=== PATIENT | male | born 1950 | race Caucasian/White ===

== ENCOUNTER 2017-01-07 17:04 | Emergency (ER) | payer MEDICARE, OTHER ==
--- NOTE | 2017-01-07 18:06 | PHYS DOC ---
General Chief Complaint: FLANK PAIN Stated Complaint: FLANK PAIN Time Seen by MD: 17:52 Source: patient, family Problems: History of Present Illness Initial Comments Patient with for right flank pain. Patient says he had this intermittently last week. He thought it might of just been some musculoskeletal pain, and fairly went away by the end of the week. However, today at noontime recurred. It feels like a sharp and pulling pain in the right low flank area. There's been constant. He's had no fever or chills. There is no runny nose or sore throat. There is no chest pain or shortness of breath. No URI symptoms or cough. There is no change amount of bladder habits no blood in the urine. There is no focal extremity or neurologic place. He's had some chronic swelling of the lower extremity is but this is not acutely changed or different in any way. There is no history of injury or trauma to the back, is really not had back problems before. Patient's really done nothing at home for this. He notes it's worse when he tries to be up and moving around. He is more comfortable when he lays still. Patient's past history is remarkable for sleep apnea, hypertension, diabetes. He controls this with diet. He does not check his sugar at home. He is a nonsmoker and nonuser of ethanol. There is a family history of kidney stones in his mother. Allergies: Coded Allergies: No Known Drug Allergies (Unverified , 01/07/17) Past Medical History Medical History: diabetes, hypertension, other Social History Smoker: non-smoker Alcohol: none Review of Systems All Other Systems: Reviewed and Negative Physical Exam General Appearance: WD/WN, mild distress Neck: full range of motion, supple, normal inspection Respiratory: lungs clear, normal breath sounds, no respiratory distress Cardiovascular: regular rate, rhythm, no gallop Gastrointestinal: non tender, soft, no organomegaly Back: no CVA tenderness, no vertebral tenderness Extremities: non-tender, normal inspection, swelling Neurologic/Psychiatric: alert, normal mood/affect, oriented x 3 Skin: normal color Lymphatic: no adenopathy Comments Generally this is a grossly obese white male who appears to be in mild discomfort with right flank pain. Vitals are as noted. Pertinent findings on physical exam shows chest to be clear. Cardiac exam shows regular rate and rhythm without murmur. The abdomen is soft and nontender without mass or megaly. There is no peritoneal findings. There is no CVA tenderness, no vertebral tenderness, and really no paraspinal tenderness. He seems to have most of his tenderness over the right lateral posterior back area. There is no signs of trauma. Extremities show 1+ bilateral lower extremity edema without redness cord asymmetry or signs of DVT. There are no gross motor or sensory deficits patient within the lower extremities. He is awake alert oriented and cooperative. Remainder of physical exam is clinically unremarkable. Orders, Labs, Meds Old charts note no prior ER visits within the current system. Labs today are clinically unremarkable. There is no evidence of UTI or hematuria. Creatinine is minimally elevated at 1.6. CT scan of the abdomen and pelvis shows no acute changes per radiology. There is specifically no evidence of urinary stone. He does have a chronic Heidel hernia seen. There does appear to be some moderate stool throughout the colon per the emergency physician. 2005 Patient resting comfortably in emergency department. He reports excellent pain relief after Toradol. Discussed with the patient uncertain cause of his pain. This is most likely muscular skeletal in nature. It had some on recalled injury or trauma. Therefore show no evidence of any urinary pathology or intra- abdominal issues. I discussed with him home care including rest, ice, gentle stretching exercises to the back. We discussed the importance of weight loss for his back pain and overall health, he voices understanding and is agreeable to consider this. We'll give him prescription for Toradol and Norflex for home. He voices understanding need to follow up with primary care or return to the ER sooner as needed if worsening anyway. He looks well, no acute discomfort distress, okay for discharge home at this time. KENNA SCHROEDER MD Jan 07, 2017 18:06
[2017-01-07] MEDS ORDERED: ONDANSETRON PF 4 MG/2 ML VIAL. ONE (18:28)
[2017-01-07] MEDS ORDERED: KETOROLAC 30 MG/ML VIAL. ONE (18:28)
[2017-01-07] MEDS: ONDANSETRON PF 4 MG/2 ML VIAL. IV ONE (18:36)
[2017-01-07] MEDS: KETOROLAC 30 MG/ML VIAL. IV ONE (18:37)
--- NOTE | 2017-01-07 18:50 | RAD ---
PROCEDURE CT abdomen and pelvis without intravenous contrast. HISTORY Severe right flank pain beginning today. TECHNIQUE Helical CT of the abdomen and pelvis was performed without intravenous or oral contrast. Exposure: One or more of the following individualized dose reduction techniques were utilized for this examination: 1. Automated exposure control. 2. Adjustment of the mA and/or kV according to patient size. 3. Use of iterative reconstruction technique. COMPARISON CT abdomen pelvis December 22, 2014. FINDINGS Evaluation of solid organs is limited by lack of intravenous contrast. Evaluation of enteric structures may be limited by lack of oral contrast. Liver, spleen, pancreas, gallbladder, and bilateral adrenal glands are unremarkable. Right kidney and bilateral ureters are free of stone or obstruction. Left kidney demonstrates punctate nonobstructive nephrolith. Interpolar region of left kidney demonstrates 2.5 centimeter low-density lesion, not adequately characterized on this examination examination, but may be parapelvic cyst. Urinary bladder is unremarkable. No bowel obstruction or inflammation is identified. Appendix is without inflammation. Calcified aortic atherosclerosis is present. No free air or free fluid is seen in the abdomen or pelvis. Moderate retrocardiac hernia, primarily containing fat, is seen. IMPRESSION 1. No acute abnormality identified in the abdomen or pelvis. No evidence urinary stone. 2. Hiatal hernia. Electronically signed by: Jorge Smalls MD (Jan 07, 2017 18:48:34)
[2017-01-07 19:05] LABS: BASO # 0.1 x10^3/uL (0.0-0.2); BASO % 1 % (0-3); EOS # 0.3 x10^3/uL (0.0-0.7); EOS % 4 % (0-3); HEMATOCRIT 39.5 % (39.0-53.0); HEMOGLOBIN 12.9 g/dL (13.0-17.5); LYMPH # 2.8 x10^3/uL (1.0-4.8); LYMPH % 34 % (24-48); MEAN CORPUSCULAR HEMOGLOBIN 30 pg (25-35); MEAN CORPUSCULAR HGB CONC 33 g/dL (31-37); MEAN CORPUSCULAR VOLUME 92 fL (79-100); MONO # 0.6 x10^3/uL (0.0-1.1); MONO % 7 % (0-9); NEUT # 4.5 x10^3uL (1.8-7.7); NEUT % 55 % (31-73); PLATELET COUNT 217 x10^3/uL (140-400); RED BLOOD COUNT 4.28 x10^6/uL (4.30-5.70); RED CELL DISTRIBUTION WIDTH 13.4 % (11.5-14.5); WHITE BLOOD COUNT 8.3 x10^3/uL (4.0-11.0)
[2017-01-07 19:22] LABS: BILIRUBIN,URINE NEG (NEG); CLARITY,URINE CLEAR; COLOR,URINE YELLOW; GLUCOSE,URINE NEG (NEG); NITRITE,URINE NEG (NEG); UROBILINOGEN,URINE 0.2 mg/dL (0.2 mg/dL)
[2017-01-07 19:23] LABS: BACTERIA,URINE 0 /HPF (0-FEW); SQUAMOUS EPITHELIAL CELL,UR OCC /LPF; WBC,URINE OCC /HPF (0-4)
[2017-01-07 19:40] LABS: ALBUMIN 3.9 g/dL (3.4-5.0); ALBUMIN/GLOBULIN RATIO 0.9 (1.0-1.7); CALCIUM 8.8 mg/dL (8.5-10.1); CREATININE 1.6 mg/dL (0.7-1.3); GFR 43.6; POTASSIUM 4.4 mmol/L (3.5-5.1); TOTAL BILIRUBIN 0.3 mg/dL (0.2-1.0); TOTAL PROTEIN 8.4 g/dL (6.4-8.2)
[2017-01-07 20:30] VITALS: BP 141/78
== END 2017-01-07 20:30 | disposition home or self-care (01) ==
LOC: ER 17:04
DX: R10.9 Unspecified abdominal pain (principal); M54.89 Other dorsalgia; R60.0 Localized edema; K44.9 Diaphragmatic hernia without obstruction or gangrene; E11.9 Type 2 diabetes mellitus without complications; I10 Essential (primary) hypertension; G47.30 Sleep apnea, unspecified
CPT/HCPCS: 36415; 74176; 80053; 81001; 85027; 96374; 96375; 99285; J1885; J2405

== ENCOUNTER → 2018-05-21 | Outpatient (CLI) | payer MEDICARE, OTHER ==
[2018-05-21 08:33] LABS: HEMATOCRIT 37.7 % (39.0-53.0); HEMOGLOBIN 12.5 g/dL (13.0-17.5)
[2018-05-21 08:38] LABS: ALBUMIN 3.7 g/dL (3.4-5.0); CALCIUM 9.1 mg/dL (8.5-10.1); CREATININE 1.7 mg/dL (0.7-1.3); GFR 40.4; POTASSIUM 4.5 mmol/L (3.5-5.1); URIC ACID 4.9 mg/dL (3.5-7.2)
--- NOTE | 2018-05-21 10:57 | RAD ---
Examination: Ultrasound kidneys HISTORY: History of cyst in the kidney COMPARISON: None available FINDINGS: The right kidney measures 11.3 x 5.8 x 5.5 cm. The left kidney measures 10.5 x 5.6 x 5.3 cm. There is a cystic structure identified in the left kidney measuring 2.4 cm.No evidence of hydronephrosis. The urinary bladder is mildly distended. The postvoid urinary bladder volume is 14.5 mL. IMPRESSION: 2.4 cm cyst identified in the left kidney. Electronically signed by: Chai Dalal MD (05/21/2018 10:53 AM) [id number]
[2018-05-22 06:10] LABS: MICRO CREAT RATIO <4.2 mg/g creat (0.0-30.0); MICROALB RD UR <3.0 ug/mL (Not Estab.)
== END | disposition home or self-care (01) ==
LOC: US 07:39
PROVIDERS: ATTEND Internal Medicine Nephrology
DX: N28.1 Cyst of kidney, acquired (principal); N32.89 Other specified disorders of bladder; I10 Essential (primary) hypertension; E11.9 Type 2 diabetes mellitus without complications
CPT/HCPCS: 36415; 76770; 80069; 82043; 82570; 82607; 82728; 83540; 83550; 83735; 84156; 84550; 85014; 85018

== ENCOUNTER → 2018-09-01 | Outpatient (CLI) | payer MEDICARE, OTHER ==
[2018-09-01 17:23] LABS: BASO # 0.1 x10^3/uL (0.0-0.2); BASO % 1 % (0-3); EOS # 0.3 x10^3/uL (0.0-0.7); EOS % 4 % (0-3); HEMATOCRIT 37.3 % (39.0-53.0); HEMOGLOBIN 12.5 g/dL (13.0-17.5); LYMPH # 2.6 x10^3/uL (1.0-4.8); LYMPH % 32 % (24-48); MEAN CORPUSCULAR HEMOGLOBIN 31 pg (25-35); MEAN CORPUSCULAR HGB CONC 33 g/dL (31-37); MEAN CORPUSCULAR VOLUME 94 fL (79-100); MONO # 0.5 x10^3/uL (0.0-1.1); MONO % 7 % (0-9); NEUT # 4.5 x10^3uL (1.8-7.7); NEUT % 57 % (31-73); PLATELET COUNT 240 x10^3/uL (140-400); RED BLOOD COUNT 3.97 x10^6/uL (4.30-5.70); RED CELL DISTRIBUTION WIDTH 14.7 % (11.5-14.5)
[2018-09-01 17:48] LABS: CALCIUM 8.9 mg/dL (8.5-10.1); CREATININE 1.5 mg/dL (0.7-1.3); GFR 46.7
--- NOTE | 2018-09-01 18:07 | RAD ---
Ultrasound venous Doppler INDICATION:LEFT LEG SWELLING TECHNIQUE: Grayscale, color Doppler and spectral waveform ultrasound images of the left lower extremity deep veins obtained. COMPARISON: None FINDINGS: The interrogated deep veins are compressible and demonstrate evidence of blood flow with normal respiratory variation and response to augmentation. IMPRESSION: No sonographic evidence of acute DVT of the left lower extremity deep veins. Electronically signed by: Sha Vazquez DO (09/01/2018 6:04 PM) [facility]
== END | disposition home or self-care (01) ==
LOC: US 16:50
PROVIDERS: ATTEND Family Medicine
DX: R60.0 Localized edema (principal)
CPT/HCPCS: 36415; 80048; 83880; 85025; 85379; 93971